=== PATIENT | male | born 1955 | race Caucasian/White ===

== ENCOUNTER 2024-09-14 08:52 | Day surgery (SDC) | payer MEDICARE, MEDICAID ==
[2024-09-11 11:11] LABS: BASOPHILS % (AUTO) 0.2 % (0-1); EOSINOPHILS # (AUTO) 0.3 X10'3 (0-0.9); EOSINOPHILS % (AUTO) 4.2 % (0-6); LYMPHOCYTES # (AUTO) 3.4 X10'3 (1.1-4.8); LYMPHOCYTES % (AUTO) 42.8 % (21-51); MEAN CORPUSCULAR HEMOGLOBIN 36.7 PG (27.0-31.0); MEAN CORPUSCULAR HGB CONC 34.7 g/dL (33.0-36.5); MEAN CORPUSCULAR VOLUME 105.7 FL (78-98); MEAN PLATELET VOLUME 8.8 FL (7.4-10.4); MONOCYTES # (AUTO) 0.6 X10'3 (0-0.9); MONOCYTES % (AUTO) 7.3 % (2-12); NEUTROPHILS # (AUTO) 3.6 X10'3 (1.8-7.7); NEUTROPHILS % (AUTO) 45.5 % (42-75); PRE OP HEMATOCRIT 35.8 % (42.0-52.0); PRE OP HEMOGLOBIN 12.4 g/dL (14.0-17.9); RED BLOOD COUNT 3.39 X10'6 (4.70-6.10); RED CELL DISTRIBUTION WIDTH 12.7 % (11.5-14.5)
[2024-09-11 11:13] LABS: ALBUMIN 3.8 G/DL (3.4-5.0); ALBUMIN/GLOBULIN RATIO 1.2 (1.1-1.5); ALKALINE PHOSPHATASE 140 IU/L (46-116); BLOOD UREA NITROGEN 9 MG/DL (7-18); BUN/CREATININE RATIO 8.7 (10.0-20.0); CHLORIDE 111 MMOL/L (99-107); CREATININE 1.04 MG/DL (0.60-1.10); PRE OP ALT 41 U/L (30-65); PRE OP ANION GAP 9 (8-16); PRE OP AST 55 U/L (10-37); PRE OP BILIRUB, TOTAL 1.3 MG/DL (0.0-1.0); PRE OP GLUCOSE 126 MG/DL (70-104); PRE OP POTASSIUM 4.3 MMOL/L (3.4-5.1); PRE OP SODIUM 144 MMOL/L (135-145); TOTAL CARBON DIOXIDE 24.2 MMOL/L (24-32); TOTAL PROTEIN 6.9 G/DL (6.4-8.2); eGFR 71 ML/MIN
[2024-09-11 12:47] LABS: PRE OP PLATELET COUNT 87 X10'3 (140-440)
[~2024-09-14] VITALS: Ht 180.3 cm; Wt 107.2 kg
[2024-09-14] MEDS: cefazolin 2gm/D5W 100mL 100 ML IV ONE (05:30)
[~2024-09-14 08:52] MED LIST: AMLO-381 PO; ATEN100T PO; DOCUMENT DATE & TIME OF BETA-BLOCKER PO ONE; LOVA40TA2 PO
[2024-09-14 09:14] VITALS: BP 149/69; PULSE 53; RESP 16; TEMP 98.8; O2SAT 97
[2024-09-14] MEDS: famotidine 20mg tablet PO ONE (10:03)
[2024-09-14] MEDS: ringers solution, lacted 1,000 ML IV SCH (10:04)
[2024-09-14] MEDS ORDERED: fentaNYL/PF 50MCG/1 ML 2ML syringe IV PRN ×2 (10:20)
[2024-09-14] MEDS ORDERED: labetalol 20mg/4ml (5mg/ml) syringe IV PRN (10:20)
[2024-09-14] MEDS ORDERED: hydrALAZINE 20mg/ml inj. IV PRN (10:20)
[2024-09-14] MEDS ORDERED: morphine 2 MG/ML inj. syringe IV PRN (10:20)
[2024-09-14] MEDS ORDERED: ondansetron/PF 4mg/2ml inj IV PRN (10:20)
[2024-09-14] MEDS ORDERED: ringers solution, lacted 1,000 ML IV SCH (10:20)
[2024-09-14] MEDS ORDERED: morphine 4 MG/ML inj SYRINge IV PRN (10:20)
[2024-09-14] MEDS ORDERED: LIDOcaine 2% (20mg/ml) 5ml vial ONE (11:54)
[2024-09-14] MEDS ORDERED: BUPIVAcaine/PF 2.5mg/ml (0.25%) 10ml vial ONE (11:54)
[2024-09-14] MEDS ORDERED: fentaNYL/PF 50MCG/1 ML 2ML syringe ONE (11:55)
[2024-09-14] MEDS ORDERED: midazolam 1 mg/ML 2ml injection ONE (11:56)
[2024-09-14] MEDS: BUPIVAcaine/PF 5 MG/ML 10ML VIAL SQ ONE (12:23)
[2024-09-14 12:45] VITALS: BP 166/78; PULSE 58; RESP 15; O2SAT 98
[2024-09-14 12:50] VITALS: BP 152/77; PULSE 57; RESP 15; O2SAT 98
[2024-09-14 13:00] VITALS: BP 144/71; PULSE 52; RESP 14; O2SAT 96
[2024-09-14 13:10] VITALS: BP 152/81; PULSE 49; RESP 14; O2SAT 97
[2024-09-14 13:41] VITALS: RESP 15
[2024-09-14] MEDS: HYDROcodone/acetaminophen 5mg/325mg tablet PO ONE (13:41)
== END 2024-09-14 13:45 | disposition home or self-care (01) ==
LOC: PAS 08:52
PROVIDERS: ATTEND Orthopaedic Surgery Hand Surgery
DX: S61.213A Laceration without foreign body of left middle finger without damage to nail, initial encounter (principal); I10 Essential (primary) hypertension; I25.2 Old myocardial infarction; E78.5 Hyperlipidemia, unspecified; Z79.899 Other long term (current) drug therapy; Z96.641 Presence of right artificial hip joint; X58.XXXA Exposure to other specified factors, initial encounter; Y93.89 Activity, other specified; Y92.89 Other specified places as the place of occurrence of the external cause; Y99.8 Other external cause status
CPT/HCPCS: 26418; 36415; 80053; 82948; 85025; 93005; A4215; A4618; A7000; J0690; J2001; J2250; J3010; J3490; J7030; J7120; Z7506; Z7512; Z7610; J0665